=== PATIENT | female | born 1980 | race Caucasian/White ===

== ENCOUNTER 2017-01-22 09:55 | Emergency (ER) | payer SELFPAY ==
[~2017-01-22] VITALS: Wt 80.0 kg
[~2017-01-22 09:55] MED LIST: BACTDS PO; CIPR500T4 PO; HYDR-3498 PO; NITR-58 PO; PHEN-538 PO; PREN1TAB31 PO; ZOF8 PO
== END 2017-01-22 11:56 | disposition left against medical advice (07) ==
LOC: FTE 09:55
DX: Z53.21 Procedure and treatment not carried out due to patient leaving prior to being seen by health care provider (principal)